=== PATIENT | male | born 1935 | race Caucasian/White ===

== ENCOUNTER 2020-09-11 12:47 | Emergency (ER) | payer MEDICARE, OTHER ==
[~2020-09-11 12:47] MED LIST: ACETAMINOPHEN325 MG PO; APRESOLINE100 MG PO; ASPIRIN EC81 MG PO; ATIVAN0.5 M1 PO; ATROVENT HFA12.9 GM INH; BACLOFEN10 MG PO; BUMETANIDE2 MG PO; BUSPIRONE HCL5 MG PO; CLARITIN10 MG PO; COLACE100 MG PO; COLCHICINE0.6 MG PO; COUMADIN2 MG PO; COUMADIN2.5 MG PO; COZAAR100 MG PO; DULCOLAX10 MG PR; DULCOLAX5 M1 PO; ELIQUIS5 MG PO; FERROUS SULFAT325 MG PO; FLEXERIL5 MG PO; FLORASTOR250 MG PO; GLUCAGON EMERGEN1 MG SC; GLUCOSE BITS1 GM PO; HYDROCODONE-APA1 TAB PO; JANUVIA50 MG PO; KEFLEX250 MG PO; KLOR-CON M2020 MEQ PO; LACTINEX1 EACH PO; LACTULOSE10 G/15 ML PO; LANTUS **100 UNITS/ SC; LEVAQUIN250 MG PO; LINZESS145 MCG PO; LIPITOR40 MG PO; LOPRESSOR100 MG PO; LOVAZA1 GM PO; MAG-OXIDE 400M400 MG PO; METOPROLOL TAR100 MG PO; MIRALAX17 GM PO; MULTIVITAMINS1 EAC1 PO; NORCO 5-325 TA1 EACH PO; NORVASC 10MG TA10 MG PO; OXYBUTYNIN CHLOR5 M1 PO; PROTONIX 40MG T40 MG PO; REMERON15 MG PO; SENOKOT8.6 MG PO; TYLENOL325 M1 PO; VIBRAMYCIN100 MG PO; VISINE ALLERGY15 ML OU; VITAMIN D50000 UNIT PO; XOPENEX1.25 MG/3 NEB; [UNRECOGNIZED DRUG - REMARK]
[2020-09-11 13:20] LABS: BASOPHIL 0.5 % (0-2); EOSINOPHIL 0.5 % (0-7); HCT 39.5 % (42.0-52.0); HGB 12.7 g/dl (13.2-18.0); LYMPHOCYTE 12.1 % (15-48); MCH 28.9 pg (25.0-31.0); MCHC 32.2 g/dL (32.0-36.0); MCV 89.8 fL (78.0-100.0); MONOCYTE 14.3 % (0-12); MPV 10.9 fL (6.0-9.5); NEUTROPHIL 71.7 % (41-80); NRBC 0; PLT 181 K/uL (150-400); RDW 14.2 % (11.5-14.0); WBC 6.5 K/uL (4.0-10.5)
[2020-09-11 13:41] LABS: ALBUMIN 3.5 g/dL (3.4-5.0); BILIRUBIN - TOTAL 0.3 mg/dL (0.2-1.0); BUN/CREAT RATIO (CALC) 14.6 RATIO; CREATININE 2.33 mg/dL (0.67-1.17); GLOBULIN (CALCULATION) 5.6 g/dL; TOTAL PROTEIN 9.1 g/dL (6.4-8.2)
[2020-09-11 14:09] LABS: BILIRUBIN NEGATIVE (NEGATIVE); BLOOD 2+ Ery/uL (NEGATIVE); CLARITY CLEAR (CLEAR); COLOR YELLOW (YELLOW); GLUCOSE (U) TRACE mg/dL (NORMAL); LEUKOCYTES NEGATIVE Leu/uL (NEGATIVE); NITRITE NEGATIVE (NEGATIVE); PROTEIN 2+ mg/dL (NEGATIVE); SPECIFIC GRAVITY 1.025 (1.001-1.030); UROBILINOGEN 0.2 mg/dL (0.2-1.0); pH 6.5 (5.0-9.0)
[2020-09-11 14:28] LABS: BACTERIA TRACE; GRANULAR CASTS TRACE; SQUAMOUS EPITHELIAL CELLS RARE; URINARY RBC 20-50
== END 2020-09-11 18:54 | disposition home or self-care (01) ==
LOC: FER 12:47
PROVIDERS: Nurse Practitioner Family
DX: B34.9 Viral infection, unspecified (principal); I48.91 Unspecified atrial fibrillation; I25.10 Atherosclerotic heart disease of native coronary artery without angina pectoris; I50.9 Heart failure, unspecified; E11.22 Type 2 diabetes mellitus with diabetic chronic kidney disease; N18.9 Chronic kidney disease, unspecified; Z88.8 Allergy status to other drugs, medicaments and biological substances; Z79.82 Long term (current) use of aspirin; Z79.899 Other long term (current) drug therapy; Z79.01 Long term (current) use of anticoagulants; Z79.84 Long term (current) use of oral hypoglycemic drugs
CPT/HCPCS: 36415; 71045; 80053; 81001; 85025; J2060

== ENCOUNTER 2021-01-23 19:47 | Emergency (ER) | payer MEDICARE, OTHER ==
[2021-01-23 20:42] LABS: BASOPHIL 0.6 % (0-2); EOSINOPHIL 1.8 % (0-7); HCT 31.1 % (42.0-52.0); HGB 10.1 g/dl (13.2-18.0); LYMPHOCYTE 16.4 % (15-48); MCH 28.1 pg (25.0-31.0); MCHC 32.5 g/dL (32.0-36.0); MCV 86.4 fL (78.0-100.0); MONOCYTE 9.4 % (0-12); MPV 11.3 fL (6.0-9.5); NEUTROPHIL 71.4 % (41-80); NRBC 0; PLT 221 K/uL (150-400); RDW 14.7 % (11.5-14.0); WBC 7.9 K/uL (4.0-10.5)
[2021-01-23 20:44] LABS: ALBUMIN 3.4 g/dL (3.4-5.0); BILIRUBIN - TOTAL 0.2 mg/dL (0.2-1.0); BUN/CREAT RATIO (CALC) 12.6 RATIO; C-REACTIVE PROTEIN 0.2 mg/dL (<=0.90); CREATININE 2.93 mg/dL (0.67-1.17); GLOBULIN (CALCULATION) 4.1 g/dL; POTASSIUM 3.6 mmol/L (3.5-5.1); TOTAL PROTEIN 7.5 g/dL (6.4-8.2)
[2021-01-23 20:49] LABS: LACTIC ACID 0.8 mmol/L (0.4-1.9)
[2021-01-23 21:46] LABS: BILIRUBIN NEGATIVE (NEGATIVE); BLOOD 1+ Ery/uL (NEGATIVE); CLARITY CLEAR (CLEAR); COLOR YELLOW (YELLOW); GLUCOSE (U) NORMAL (NORMAL); LEUKOCYTES NEGATIVE Leu/uL (NEGATIVE); NITRITE NEGATIVE (NEGATIVE); PROTEIN 3+ mg/dL (NEGATIVE); SPECIFIC GRAVITY 1.025 (1.001-1.030); UROBILINOGEN 0.2 mg/dL (0.2-1.0); pH 5.5 (5.0-9.0)
[2021-01-23 21:55] LABS: BACTERIA 2+; SQUAMOUS EPITHELIAL CELLS RARE; URINARY RBC RARE
[2021-01-24] MEDS ORDERED: CIPRO500 MG PO (00:17)
[2021-01-24] MEDS ORDERED: PROMETHEGA12.5 MG/SU PR (00:17)
[2021-01-24] MEDS ORDERED: BENTYL10 MG PO (00:17)
== END 2021-01-24 01:39 | disposition home or self-care (01) ==
LOC: FER 19:47
PROVIDERS: Emergency Medicine Emergency Medical Services
DX: N30.00 Acute cystitis without hematuria (principal); R74.8 Abnormal levels of other serum enzymes; R60.0 Localized edema; R19.7 Diarrhea, unspecified; Z90.49 Acquired absence of other specified parts of digestive tract; Z88.8 Allergy status to other drugs, medicaments and biological substances
CPT/HCPCS: 36415; 80053; 81001; 83605; 83690; 84145; 84484; 85025; 86140; 87088; 93005; J7030

== ENCOUNTER 2021-02-18 23:02 | Day surgery (SDCO) | payer MEDICARE, OTHER ==
[~2021-02-18] VITALS: Ht 182.9 cm; Wt 87.1 kg
[~2021-02-18 23:02] MED LIST changes: +BENTYL10 MG PO; +CIPRO500 MG PO; +PROMETHEGA12.5 MG/SU PR
[2021-02-19] MEDS ORDERED: BASAGLAR K100 UNIT/1 SC (05:06)
[2021-02-19] MEDS ORDERED: BUMEX1 MG PO (05:07)
[2021-02-19] MEDS ORDERED: DICLO GEL1 EACH PO (05:08)
[2021-02-19] MEDS ORDERED: COLACE100 MG PO (05:09)
[2021-02-19] MEDS ORDERED: EFFEXOR XR150 MG PO (05:10)
[2021-02-19] MEDS ORDERED: ELIQUIS5 MG PO (05:11)
[2021-02-19] MEDS ORDERED: JANUVIA50 MG PO (05:12)
[2021-02-19] MEDS ORDERED: CLARITIN10 MG PO (05:13)
[2021-02-19] MEDS ORDERED: LINZESS145 MCG PO (05:13)
[2021-02-19] MEDS ORDERED: LOPRESSOR50 MG PO (05:14)
[2021-02-19] MEDS ORDERED: MAG-OXIDE 400M400 MG PO (05:14)
[2021-02-19] MEDS ORDERED: NORCO 5-325 TA1 EACH PO (05:16)
[2021-02-19] MEDS ORDERED: NORVASC5 MG PO (05:16)
[2021-02-19] MEDS ORDERED: PROPRANOLOL HCL40 MG PO (05:18)
[2021-02-19] MEDS ORDERED: PROTONIX 40MG T40 MG PO (05:19)
--- NOTE | 2021-02-19 05:33 | NUR ---
0420 PT RECEIVED ADMIT FROM ED. PT ORIENTED TO ROOM AND CALL LIGHT.
[2021-02-19 06:10] LABS: BASOPHIL 0.5 % (0-2); EOSINOPHIL 3.8 % (0-7); HCT 26.4 % (42.0-52.0); HGB 8.2 g/dl (13.2-18.0); LYMPHOCYTE 18.8 % (15-48); MCH 27.7 pg (25.0-31.0); MCHC 31.1 g/dL (32.0-36.0); MCV 89.2 fL (78.0-100.0); MONOCYTE 8.3 % (0-12); MPV 11.8 fL (6.0-9.5); NEUTROPHIL 67.7 % (41-80); NRBC 0; PLT 253 K/uL (150-400); RBC 2.96 M/uL (4.70-6.00); RDW 15.8 % (11.5-14.0); WBC 7.7 K/uL (4.0-10.5)
[2021-02-19 06:38] LABS: CREATININE 2.83 mg/dL (0.67-1.17); POTASSIUM 3.7 mmol/L (3.5-5.1)
[2021-02-19 06:39] LABS: BILIRUBIN - TOTAL 0.3 mg/dL (0.2-1.0); GLOBULIN (CALCULATION) 4.3 g/dL; TOTAL PROTEIN 7.3 g/dL (6.4-8.2)
--- NOTE | 2021-02-19 13:22 | NUR ---
PT. IS A RESIDENT OF [facility].
[2021-02-20 05:54] LABS: BASOPHIL 0.6 % (0-2); EOSINOPHIL 3.1 % (0-7); HCT 25.8 % (42.0-52.0); HGB 8.4 g/dl (13.2-18.0); LYMPHOCYTE 12.9 % (15-48); MCHC 32.6 g/dL (32.0-36.0); MONOCYTE 8.2 % (0-12); MPV 10.8 fL (6.0-9.5); NEUTROPHIL 74.6 % (41-80); NRBC 0; PLT 227 K/uL (150-400); RDW 15.6 % (11.5-14.0); WBC 6.4 K/uL (4.0-10.5)
[2021-02-20] MEDS ORDERED: OXYCODONE-ACET1 EAC1 PO (09:26)
[2021-02-20] MEDS ORDERED: ACETAMINOPHEN325 MG PO (09:26)
== END 2021-02-20 12:14 | disposition home or self-care (01) ==
LOC: FER 23:02 → FMS 02-19 02:48
PROVIDERS: Nurse Practitioner; Nurse Practitioner Adult Health; ADMIT Allergy & Immunology Allergy
DX: S86.111A Strain of other muscle(s) and tendon(s) of posterior muscle group at lower leg level, right leg, initial encounter (principal); S80.11XA Contusion of right lower leg, initial encounter; M79.661 Pain in right lower leg; I13.0 Hypertensive heart and chronic kidney disease with heart failure and stage 1 through stage 4 chronic kidney disease, or unspecified chronic kidney disease; E11.22 Type 2 diabetes mellitus with diabetic chronic kidney disease; N18.30 Chronic kidney disease, stage 3 unspecified; I50.9 Heart failure, unspecified; I48.91 Unspecified atrial fibrillation; M81.0 Age-related osteoporosis without current pathological fracture; G89.29 Other chronic pain; M54.9 Dorsalgia, unspecified; I25.10 Atherosclerotic heart disease of native coronary artery without angina pectoris; K21.9 Gastro-esophageal reflux disease without esophagitis; E78.5 Hyperlipidemia, unspecified; I69.354 Hemiplegia and hemiparesis following cerebral infarction affecting left non-dominant side; Z86.718 Personal history of other venous thrombosis and embolism; Z87.891 Personal history of nicotine dependence; Z79.01 Long term (current) use of anticoagulants; Z79.4 Long term (current) use of insulin; Z79.899 Other long term (current) drug therapy; Z91.041 Radiographic dye allergy status; Z20.822 Contact with and (suspected) exposure to COVID-19; W01.198A Fall on same level from slipping, tripping and stumbling with subsequent striking against other object, initial encounter
CPT/HCPCS: 36415; 73700; 80053; 82962; 85025; 93971; 97110; 97162; 97166; 97530; 97530-GP; 97535; G0378; U0002

== ENCOUNTER 2021-10-25 06:27 | Inpatient (IN) | payer MEDICARE, OTHER ==
[~2021-10-25 06:27] MED LIST changes: +BASAGLAR K100 UNIT/1 SC; +BUMEX1 MG PO; +DICLO GEL1 EACH PO; +EFFEXOR XR150 MG PO; +LOPRESSOR50 MG PO; +NORVASC5 MG PO; +OXYCODONE-ACET1 EAC1 PO; +PROPRANOLOL HCL40 MG PO
[2021-10-25 06:55] LABS: BASOPHIL 0.3 % (0-2); EOSINOPHIL 1.3 % (0-7); HCT 27.7 % (42.0-52.0); HGB 8.8 g/dl (13.2-18.0); LYMPHOCYTE 7.3 % (15-48); MCH 25.9 pg (25.0-31.0); MCHC 31.8 g/dL (32.0-36.0); MCV 81.5 fL (78.0-100.0); MPV 10.2 fL (6.0-9.5); NEUTROPHIL 85.5 % (41-80); NRBC 0; PLT 251 K/uL (150-400); RDW 17.8 % (11.5-14.0)
[2021-10-25 07:11] LABS: INR 1.33 (0.9-1.2); PROTHROMBIN TIME 15.8 SECONDS (11.8-13.4)
[2021-10-25 07:12] LABS: PTT 46.8 SECONDS (24.4-34.7)
[2021-10-25 07:38] LABS: ALBUMIN 3.4 g/dL (3.4-5.0); BILIRUBIN - TOTAL 0.5 mg/dL (0.2-1.0); BUN/CREAT RATIO (CALC) 11.5 RATIO; CREATININE 5.3 mg/dL (0.67-1.17); GLOBULIN (CALCULATION) 4.8 g/dL; POTASSIUM 3.3 mmol/L (3.5-5.1); TOTAL PROTEIN 8.2 g/dL (6.4-8.2)
[2021-10-25 07:46] LABS: BILIRUBIN NEGATIVE (NEGATIVE); BLOOD 3+ Ery/uL (NEGATIVE); CLARITY CLOUDY (CLEAR); COLOR ORANGE (YELLOW); GLUCOSE (U) NORMAL (NORMAL); LEUKOCYTES TRACE Leu/uL (NEGATIVE); NITRITE NEGATIVE (NEGATIVE); PROTEIN 3+ mg/dL (NEGATIVE); SPECIFIC GRAVITY 1.025 (1.001-1.030); UROBILINOGEN 0.2 mg/dL (0.2-1.0)
[2021-10-25 07:53] LABS: URINARY RBC TNTC
[2021-10-25 07:54] LABS: BACTERIA 4+; URINARY WBC 20-50
[2021-10-25 07:55] LABS: SQUAMOUS EPITHELIAL CELLS RARE
[2021-10-25 07:56] LABS: MUCOUS TRACE
[2021-10-25 08:03] LABS: GRANULAR CASTS TRACE
[2021-10-25 08:20] LABS: CORONAVIRUS 2019 SARS-COV-2 NEGATIVE (NEGATIVE); INFLUENZA A NAA NEGATIVE (NEGATIVE)
[2021-10-25] MEDS ORDERED: BASAGLAR K100 UNIT/1 SC (12:31)
[2021-10-25] MEDS ORDERED: BUSPAR5 MG PO (12:32)
[2021-10-25] MEDS ORDERED: BUMEX1 MG PO (12:32)
[2021-10-25] MEDS ORDERED: CALCIUM PO (12:33)
[2021-10-25] MEDS ORDERED: ARTHRITIS PAIN50 GM TOP (12:34)
[2021-10-25] MEDS ORDERED: EFFEXOR XR150 MG PO (12:34)
[2021-10-25] MEDS ORDERED: COLACE100 MG PO (12:34)
[2021-10-25] MEDS ORDERED: ELIQUIS2.5 MG PO (12:35)
[2021-10-25] MEDS ORDERED: ILOTYCIN1 GM EYELF (12:36)
[2021-10-25] MEDS ORDERED: HYDRALAZINE 10M10 MG PO (12:36)
[2021-10-25] MEDS ORDERED: CLARITIN10 M2 PO (12:37)
[2021-10-25] MEDS ORDERED: LINZESS145 MCG PO (12:37)
[2021-10-25] MEDS ORDERED: JANUVIA100 MG PO (12:37)
[2021-10-25] MEDS ORDERED: LOPRESSOR50 MG PO (12:38)
[2021-10-25] MEDS ORDERED: MAGOX 400400 MG PO (12:38)
[2021-10-25] MEDS ORDERED: PERCOCET 5-3251 EACH PO (12:39)
[2021-10-25] MEDS ORDERED: NORVASC5 MG PO (12:39)
[2021-10-25] MEDS ORDERED: DAILY VALUE1 EACH PO (12:39)
[2021-10-25] MEDS ORDERED: PROTONIX 40MG T40 MG PO (12:40)
[2021-10-25] MEDS ORDERED: INDERAL20 MG PO (12:40)
[2021-10-25] MEDS ORDERED: REFRESH TEARS15 ML EYEBOTH (12:41)
[2021-10-25] MEDS ORDERED: ACETAMINOPHEN325 MG PO (12:42)
[2021-10-25] MEDS ORDERED: ONDANSETRON ODT4 MG SL (12:42)
[2021-10-25 16:37] LABS: IRON % SATURATION 14.4 %SAT (20-50)
[2021-10-26 06:47] LABS: BASOPHIL 0.3 % (0-2); EOSINOPHIL 0.3 % (0-7); HCT 25.4 % (42.0-52.0); HGB 8.1 g/dl (13.2-18.0); LYMPHOCYTE 5.1 % (15-48); MCHC 31.9 g/dL (32.0-36.0); MCV 81.7 fL (78.0-100.0); MONOCYTE 5.4 % (0-12); MPV 10.1 fL (6.0-9.5); NEUTROPHIL 88.1 % (41-80); NRBC 0; PLT 224 K/uL (150-400); RBC 3.11 M/uL (4.70-6.00); RDW 17.9 % (11.5-14.0)
[2021-10-26 07:38] LABS: BUN/CREAT RATIO (CALC) 10.8 RATIO; CREATININE 5.55 mg/dL (0.67-1.17); POTASSIUM 3.3 mmol/L (3.5-5.1)
== END 2021-10-27 00:45 | disposition other institution (70) | DRG 682 ==
LOC: FER 06:27 → FMS 09:32
PROVIDERS: Internal Medicine; ADMIT Family Medicine
PROC: 0T9B70Z Drainage of Bladder with Drainage Device, Via Natural or Artificial Opening (ICD-10-PCS; principal; 2021-10-25)
PROC: 3E03329 Introduction of Other Anti-infective into Peripheral Vein, Percutaneous Approach (ICD-10-PCS; 2021-10-25)
DX: N17.9 Acute kidney failure, unspecified (principal); G93.41 Metabolic encephalopathy; I50.23 Acute on chronic systolic (congestive) heart failure; I13.0 Hypertensive heart and chronic kidney disease with heart failure and stage 1 through stage 4 chronic kidney disease, or unspecified chronic kidney disease; N30.01 Acute cystitis with hematuria; I69.354 Hemiplegia and hemiparesis following cerebral infarction affecting left non-dominant side; N18.4 Chronic kidney disease, stage 4 (severe); N13.30 Unspecified hydronephrosis; J44.9 Chronic obstructive pulmonary disease, unspecified; E11.22 Type 2 diabetes mellitus with diabetic chronic kidney disease; S00.03XA Contusion of scalp, initial encounter; I25.10 Atherosclerotic heart disease of native coronary artery without angina pectoris; D63.1 Anemia in chronic kidney disease; R29.6 Repeated falls; W01.0XXA Fall on same level from slipping, tripping and stumbling without subsequent striking against object, initial encounter; W06.XXXA Fall from bed, initial encounter; R10.30 Lower abdominal pain, unspecified; T83.098A Other mechanical complication of other urinary catheter, initial encounter; Z86.718 Personal history of other venous thrombosis and embolism; Z85.46 Personal history of malignant neoplasm of prostate; Z90.79 Acquired absence of other genital organ(s); Z90.49 Acquired absence of other specified parts of digestive tract; Z98.890 Other specified postprocedural states; Z95.5 Presence of coronary angioplasty implant and graft; Z85.828 Personal history of other malignant neoplasm of skin; Z79.4 Long term (current) use of insulin; Z79.01 Long term (current) use of anticoagulants; Z79.899 Other long term (current) drug therapy
CPT/HCPCS: 36415; 36600; 70450; 71250; 72125; 72128; 72131; 80048; 80053; 81001; 82607; 82803; 83036; 83540; 83550; 83605; 83880; 84145; 84484; 85025; 85610; 85730; 87040; 87088; 93005; 97162; 97166; 97530-GP; 97535; J0696; J3475; U0002

== ENCOUNTER 2021-11-12 12:09 | Inpatient (IN) | payer MEDICARE, OTHER ==
[~2021-11-12] VITALS: Ht 182.9 cm; Wt 79.0 kg
[~2021-11-12 12:09] MED LIST changes: +ARTHRITIS PAIN50 GM TOP; +BUSPAR5 MG PO; +CALCIUM PO; +CLARITIN10 M2 PO; +DAILY VALUE1 EACH PO; +ELIQUIS2.5 MG PO; +HYDRALAZINE 10M10 MG PO; +ILOTYCIN1 GM EYELF; +INDERAL20 MG PO; +JANUVIA100 MG PO; +MAGOX 400400 MG PO; +ONDANSETRON ODT4 MG SL; +PERCOCET 5-3251 EACH PO; +REFRESH TEARS15 ML EYEBOTH
[2021-11-12 13:22] LABS: BASOPHIL 0.6 % (0-2); EOSINOPHIL 1.3 % (0-7); HCT 24.4 % (42.0-52.0); HGB 7.3 g/dl (13.2-18.0); LYMPHOCYTE 10.7 % (15-48); MCH 25.9 pg (25.0-31.0); MCHC 29.9 g/dL (32.0-36.0); MCV 86.5 fL (78.0-100.0); MONOCYTE 7.8 % (0-12); MPV 9.6 fL (6.0-9.5); NEUTROPHIL 78.6 % (41-80); NRBC 0; PLT 335 K/uL (150-400); RBC 2.82 M/uL (4.70-6.00); RDW 17.2 % (11.5-14.0); WBC 5.2 K/uL (4.0-10.5)
[2021-11-12 13:24] LABS: ALBUMIN 2.6 g/dL (3.4-5.0); BILIRUBIN - TOTAL 0.3 mg/dL (0.2-1.0); BUN/CREAT RATIO (CALC) 11.5 RATIO; CREATININE 5.06 mg/dL (0.67-1.17); GLOBULIN (CALCULATION) 4.7 g/dL; POTASSIUM 4.3 mmol/L (3.5-5.1); TOTAL PROTEIN 7.3 g/dL (6.4-8.2)
[2021-11-12 13:27] LABS: INR 1.16 (0.9-1.2); PROTHROMBIN TIME 14.2 SECONDS (11.8-13.4); PTT 37.6 SECONDS (24.4-34.7)
[2021-11-12] MEDS ORDERED: ARTIFICIAL TEAR15 M6 EYELF (21:37)
[2021-11-12] MEDS ORDERED: BENTYL10 MG PO (21:40)
[2021-11-12] MEDS ORDERED: ILOTYCIN1 GM EYELF (21:42)
[2021-11-12] MEDS ORDERED: FEOSOL325 MG PO (21:43)
[2021-11-12] MEDS ORDERED: FINASTERIDE5 MG PO (21:44)
[2021-11-12] MEDS ORDERED: HYDRALAZINE25 MG PO (21:49)
[2021-11-12] MEDS ORDERED: PERCOCET 5-3251 EACH PO (21:51)
[2021-11-12] MEDS ORDERED: PROTONIX 40MG T40 MG PO (21:52)
[2021-11-12] MEDS ORDERED: FLOMAX0.4 MG PO (21:54)
[2021-11-13 05:46] LABS: BASOPHIL 0.5 % (0-2); EOSINOPHIL 0.5 % (0-7); HCT 27.1 % (42.0-52.0); HGB 8.3 g/dl (13.2-18.0); LYMPHOCYTE 8.4 % (15-48); MCH 26.2 pg (25.0-31.0); MCHC 30.6 g/dL (32.0-36.0); MCV 85.5 fL (78.0-100.0); MONOCYTE 8.5 % (0-12); MPV 9.1 fL (6.0-9.5); NEUTROPHIL 81.1 % (41-80); NRBC 0; PLT 274 K/uL (150-400); RBC 3.17 M/uL (4.70-6.00); RDW 16.4 % (11.5-14.0); WBC 5.7 K/uL (4.0-10.5)
[2021-11-13 06:33] LABS: BUN/CREAT RATIO (CALC) 11.6 RATIO; CREATININE 4.91 mg/dL (0.67-1.17); POTASSIUM 4.5 mmol/L (3.5-5.1)
--- NOTE | 2021-11-13 08:31 | NUR ---
11/13/21 Patient was admitted from [facility]. [facility] will accept back per Lisy Sawyer. No pre-auth required. A new COVID test is required if admitted greater than 72 hours.
[2021-11-13 10:08] LABS: IRON % SATURATION 20.7 %SAT (20-50)
[2021-11-14 08:09] LABS: BASOPHIL 0.6 % (0-2); EOSINOPHIL 0.4 % (0-7); HCT 26.5 % (42.0-52.0); HGB 8.2 g/dl (13.2-18.0); LYMPHOCYTE 10.9 % (15-48); MCH 26.5 pg (25.0-31.0); MCHC 30.9 g/dL (32.0-36.0); MCV 85.5 fL (78.0-100.0); MONOCYTE 10.5 % (0-12); NEUTROPHIL 76.9 % (41-80); NRBC 0; PLT 231 K/uL (150-400); WBC 5.4 K/uL (4.0-10.5)
[2021-11-14 08:27] LABS: ALBUMIN 2.7 g/dL (3.4-5.0); BILIRUBIN - TOTAL 0.3 mg/dL (0.2-1.0); BUN/CREAT RATIO (CALC) 11.4 RATIO; C-REACTIVE PROTEIN 9.9 mg/dL (<=0.90); CREATININE 5.01 mg/dL (0.67-1.17); GLOBULIN (CALCULATION) 4.4 g/dL; MAGNESIUM 2.7 mg/dL (1.8-2.4); POTASSIUM 4.3 mmol/L (3.5-5.1); TOTAL PROTEIN 7.1 g/dL (6.4-8.2)
[2021-11-15 05:44] LABS: BASOPHIL 0.5 % (0-2); EOSINOPHIL 0.8 % (0-7); HCT 28.2 % (42.0-52.0); HGB 8.5 g/dl (13.2-18.0); LYMPHOCYTE 6.5 % (15-48); MCH 26.7 pg (25.0-31.0); MCHC 30.1 g/dL (32.0-36.0); MCV 88.7 fL (78.0-100.0); MONOCYTE 10.4 % (0-12); MPV 9.1 fL (6.0-9.5); NRBC 0; PLT 210 K/uL (150-400); RBC 3.18 M/uL (4.70-6.00); RDW 16.8 % (11.5-14.0); WBC 6.4 K/uL (4.0-10.5)
[2021-11-15 06:01] LABS: BUN/CREAT RATIO (CALC) 11.3 RATIO; CREATININE 4.77 mg/dL (0.67-1.17); POTASSIUM 4.9 mmol/L (3.5-5.1)
[2021-11-16 06:29] LABS: BASOPHIL 0.8 % (0-2); EOSINOPHIL 2.7 % (0-7); HCT 25.4 % (42.0-52.0); HGB 7.7 g/dl (13.2-18.0); LYMPHOCYTE 9.9 % (15-48); MCH 26.9 pg (25.0-31.0); MCHC 30.3 g/dL (32.0-36.0); MCV 88.8 fL (78.0-100.0); MONOCYTE 9.9 % (0-12); MPV 9.5 fL (6.0-9.5); NEUTROPHIL 76.1 % (41-80); NRBC 0; PLT 222 K/uL (150-400); RBC 2.86 M/uL (4.70-6.00); RDW 17.2 % (11.5-14.0); WBC 4.8 K/uL (4.0-10.5)
[2021-11-16 07:23] LABS: ALBUMIN 2.3 g/dL (3.4-5.0); ALKALINE PHOSHATASE 77 U/L (46-116); ALT 15 U/L (16-63); AST 13 U/L (15-37); BILIRUBIN - TOTAL 0.4 mg/dL (0.2-1.0); BUN 64 mg/dL (7-18); C-REACTIVE PROTEIN > 18.00 mg/dL (<=0.90); CHLORIDE 105 mmol/L (98-107); CO2 (BICARBONATE) 23 mmol/L (21-32); CREATININE 4.91 mg/dL (0.67-1.17); GLOBULIN (CALCULATION) 4.5 g/dL; GLUCOSE 72 mg/dL (74-106); POTASSIUM 4.6 mmol/L (3.5-5.1); TOTAL PROTEIN 6.8 g/dL (6.4-8.2)
[2021-11-16] MEDS ORDERED: CEFEPIME HCL1 GM IV (13:31)
[2021-11-16] MEDS ORDERED: VANCOMYCIN1000 M1 IV (13:31)
[2021-11-16] MEDS ORDERED: BUMETANIDE2 MG PO (13:33)
[2021-11-16] MEDS ORDERED: PERCOCET 5-3251 EACH PO (16:50)
== END 2021-11-16 17:30 | DRG 811 ==
LOC: FER 12:09 → FTCU 15:25 → FMS 15:25 → FTCU 19:59
PROVIDERS: Emergency Medicine; Nurse Practitioner; Nurse Practitioner Acute Care; ADMIT Internal Medicine
PROC: 30233N1 Transfusion of Nonautologous Red Blood Cells into Peripheral Vein, Percutaneous Approach (ICD-10-PCS; principal; 2021-11-12)
DX: D50.0 Iron deficiency anemia secondary to blood loss (chronic) (principal); J18.9 Pneumonia, unspecified organism; N18.5 Chronic kidney disease, stage 5; I13.2 Hypertensive heart and chronic kidney disease with heart failure and with stage 5 chronic kidney disease, or end stage renal disease; I69.354 Hemiplegia and hemiparesis following cerebral infarction affecting left non-dominant side; J98.19 Other pulmonary collapse; J44.0 Chronic obstructive pulmonary disease with (acute) lower respiratory infection; I50.9 Heart failure, unspecified; E11.22 Type 2 diabetes mellitus with diabetic chronic kidney disease; Z20.822 Contact with and (suspected) exposure to COVID-19; R09.02 Hypoxemia; R44.1 Visual hallucinations; E11.65 Type 2 diabetes mellitus with hyperglycemia; F03.90 Unspecified dementia, unspecified severity, without behavioral disturbance, psychotic disturbance, mood disturbance, and anxiety; D63.1 Anemia in chronic kidney disease; K56.41 Fecal impaction; Y95 Nosocomial condition; Z86.718 Personal history of other venous thrombosis and embolism; Z95.5 Presence of coronary angioplasty implant and graft; Z85.46 Personal history of malignant neoplasm of prostate; Z90.79 Acquired absence of other genital organ(s); Z90.49 Acquired absence of other specified parts of digestive tract; Z98.890 Other specified postprocedural states; Z85.828 Personal history of other malignant neoplasm of skin; Z98.49 Cataract extraction status, unspecified eye; Z79.899 Other long term (current) drug therapy
CPT/HCPCS: 36415; 36430; 36600; 71045; 71250; 80048; 80053; 82270; 82607; 82728; 82803; 82962; 83540; 83550; 83605; 83735; 83880; 84100; 84145; 84484; 85025; 85610; 85730; 86140; 86850; 86900; 86901; 86922; 93005; 94010; 94640; 94667; 94668; 97162; 97166; 97530-GP; 97535; G0378; J0692; J1630; J1644; J1815; J1940; J2916; J3370; J3486; J7040; J7050; P9016; U0002

== ENCOUNTER 2022-03-14 16:52 | Emergency (ER) | payer MEDICARE, OTHER ==
[~2022-03-14 16:52] MED LIST changes: +ARTIFICIAL TEAR15 M6 EYELF; +CEFEPIME HCL1 GM IV; +FEOSOL325 MG PO; +FINASTERIDE5 MG PO; +FLOMAX0.4 MG PO; +HYDRALAZINE25 MG PO; +VANCOMYCIN1000 M1 IV
[2022-03-14 18:25] LABS: BASOPHIL 0.3 % (0-2); EOSINOPHIL 0 % (0-7); HCT 31.4 % (42.0-52.0); HGB 10.3 g/dl (13.2-18.0); LYMPHOCYTE 11.6 % (15-48); MCH 29.3 pg (25.0-31.0); MCHC 32.8 g/dL (32.0-36.0); MCV 89.2 fL (78.0-100.0); MONOCYTE 6.8 % (0-12); MPV 9.8 fL (6.0-9.5); NRBC 0; PLT 238 K/uL (150-400); RBC 3.52 M/uL (4.70-6.00); RDW 13.8 % (11.5-14.0); WBC 6.3 K/uL (4.0-10.5)
[2022-03-14 18:45] LABS: BILIRUBIN - TOTAL 0.4 mg/dL (0.2-1.0); CREATININE 5.45 mg/dL (0.67-1.17); GLOBULIN (CALCULATION) 4.1 g/dL; TOTAL PROTEIN 8.1 g/dL (6.4-8.2)
[2022-03-14 18:52] LABS: LACTIC ACID 1.3 mmol/L (0.4-1.9)
[2022-03-14] MEDS ORDERED: AMOX TR-K CLV1 EAC4 PO (19:16)
[2022-03-14 19:47] LABS: BILIRUBIN NEGATIVE (NEGATIVE); BLOOD 1+ Ery/uL (NEGATIVE); CLARITY HAZY (CLEAR); COLOR YELLOW (YELLOW); GLUCOSE (U) TRACE mg/dL (NORMAL); LEUKOCYTES 1+ Leu/uL (NEGATIVE); NITRITE NEGATIVE (NEGATIVE); PROTEIN 3+ mg/dL (NEGATIVE); UROBILINOGEN 0.2 mg/dL (0.2-1.0)
[2022-03-14 19:56] LABS: BACTERIA 2+
[2022-03-14] MEDS ORDERED: CEFDINIR300 MG PO (20:16)
== END 2022-03-14 21:35 | disposition home or self-care (01) ==
LOC: FER 16:52
PROVIDERS: Emergency Medicine
DX: I67.9 Cerebrovascular disease, unspecified (principal); R82.71 Bacteriuria; F03.90 Unspecified dementia, unspecified severity, without behavioral disturbance, psychotic disturbance, mood disturbance, and anxiety; E11.9 Type 2 diabetes mellitus without complications; I10 Essential (primary) hypertension; Z20.822 Contact with and (suspected) exposure to COVID-19; Z86.73 Personal history of transient ischemic attack (TIA), and cerebral infarction without residual deficits; Z91.041 Radiographic dye allergy status
CPT/HCPCS: 36415; 70450; 80053; 81001; 83605; 84145; 84484; 85025; 87040; 87076; 87088; 87186; 93005; J0696; U0002

== ENCOUNTER 2022-03-29 15:08 | Emergency (ER) | payer MEDICARE, OTHER ==
[~2022-03-29 15:08] MED LIST changes: +AMOX TR-K CLV1 EAC4 PO; +CEFDINIR300 MG PO
[2022-03-29 15:44] LABS: BASOPHIL 0.6 % (0-2); EOSINOPHIL 2.6 % (0-7); HCT 27.3 % (42.0-52.0); HGB 8.8 g/dl (13.2-18.0); LYMPHOCYTE 16.8 % (15-48); MCH 30.1 pg (25.0-31.0); MCHC 32.2 g/dL (32.0-36.0); MCV 93.5 fL (78.0-100.0); MONOCYTE 7.6 % (0-12); MPV 10.3 fL (6.0-9.5); NEUTROPHIL 71.8 % (41-80); NRBC 0; PLT 197 K/uL (150-400); RBC 2.92 M/uL (4.70-6.00); RDW 13.6 % (11.5-14.0)
[2022-03-29 16:31] LABS: ALBUMIN 3.1 g/dL (3.4-5.0); BILIRUBIN - TOTAL 0.3 mg/dL (0.2-1.0); CREATININE 5.75 mg/dL (0.67-1.17); GLOBULIN (CALCULATION) 3.9 g/dL; POTASSIUM 3.8 mmol/L (3.5-5.1)
[2022-03-29 17:06] LABS: BILIRUBIN NEGATIVE (NEGATIVE); BLOOD NEGATIVE Ery/uL (NEGATIVE); CLARITY CLEAR (CLEAR); COLOR YELLOW (YELLOW); GLUCOSE (U) TRACE mg/dL (NORMAL); LEUKOCYTES 3+ Leu/uL (NEGATIVE); NITRITE POSITIVE (NEGATIVE); PROTEIN 2+ mg/dL (NEGATIVE); UROBILINOGEN 0.2 mg/dL (0.2-1.0); pH 5.5 (5.0-9.0)
[2022-03-29 17:14] LABS: BACTERIA 2+; URINARY RBC RARE
[2022-03-29 17:15] LABS: SQUAMOUS EPITHELIAL CELLS RARE
[2022-03-29] MEDS ORDERED: AUGMENTIN 500-1 EACH PO (18:57)
== END 2022-03-29 22:40 | disposition home or self-care (01) ==
LOC: FER 15:08
PROVIDERS: Emergency Medicine
DX: E11.22 Type 2 diabetes mellitus with diabetic chronic kidney disease (principal); N18.4 Chronic kidney disease, stage 4 (severe); N39.0 Urinary tract infection, site not specified; F03.90 Unspecified dementia, unspecified severity, without behavioral disturbance, psychotic disturbance, mood disturbance, and anxiety
CPT/HCPCS: 36415; 80053; 81001; 82150; 83690; 85025; 87076; 87088; 87186; J0696; J7030